=== PATIENT | female | born 1990 | race Caucasian/White ===

== ENCOUNTER 2022-01-04 13:50 | Emergency (ER) | payer OTHER ==
[2022-01-04 15:01] VITALS: TEMP 98.5; BMI 24.7
[2022-01-04] MEDS ORDERED: FAMOTIDINE 20 MG/50 ML IVPB 20 MG/50 ML MG IVPB ONE (15:08)
[2022-01-04] MEDS ORDERED: SODIUM CHLORIDE 0.9% 500 ML INFUS.BAG IV ONE (15:08)
[2022-01-04] MEDS ORDERED: ONDANSETRON 4 MG/2 ML VIAL IVPB ONE (15:08)
[2022-01-04] MEDS ORDERED: ONDANSETRON 4 MG/2 ML VIAL ONE (15:13)
[2022-01-04] MEDS ORDERED: FAMOTIDINE 10 MG/ML VIAL IVPB ONE (15:14)
[2022-01-04 16:32] LABS: BASO % 0.5 % (0-2.0); EOS % 0.8 % (0-4.5); HEMATOCRIT 38.1 % (32.4-45.2); HEMOGLOBIN 13.1 GM/dL (10.7-15.3); LYMPH % 23.3 % (8-40); MCH 30.4 pg (25.7-33.7); MCHC 34.5 g/dl (32.0-36.0); MEAN CELL VOLUME 88.1 fl (80-96); MEAN PLT VOLUME 8.5 fl (7.5-11.1); MONO % 7.9 % (3.8-10.2); NEUT % 67.5 % (42.8-82.8); PLATELET COUNT 367 10^3/uL (134-434); RBC 4.32 M/mm3 (3.60-5.2); RDW 13.6 % (11.6-15.6); WHITE BLOOD COUNT 7.1 K/mm3 (4.0-10.0)
[2022-01-04 16:52] LABS: CALCIUM 9.6 mg/dL (8.5-10.1)
[2022-01-04 16:54] LABS: ALBUMIN 4.4 g/dl (3.4-5.0)
[2022-01-04 16:56] LABS: CREATININE 0.5 mg/dL (0.55-1.3)
[2022-01-04 16:58] LABS: BILIRUBIN,TOTAL 0.5 mg/dL (0.2-1)
[2022-01-04 17:06] LABS: ACTIVATED PTT 34.3 SECONDS (25.2-36.5); INR 1.17 (0.83-1.09); PROTHROMBIN TIME (PATIENT) 13.5 SEC (9.7-13.0)
[2022-01-04 17:09] LABS: BLOOD UREA NITROGEN 8.8 mg/dL (7-18)
[2022-01-04 18:07] LABS: EPI CELLS 31 /uL (0-25.1); HYALINE CASTS 1 /uL (0-3.1); PH,URINE 7.5 (5.0-8.0); URINE APPEARANCE CLEAR; URINE BACTERIA 237 /uL (0-1359); URINE BILIRUBIN NEGATIVE (NEGATIVE); URINE COLOR YELLOW; URINE GLUCOSE (UA) NEGATIVE (NEGATIVE); URINE KETONE 1+ (NEGATIVE); URINE LEUK ESTERASE 1+ (NEGATIVE); URINE NITRITE NEGATIVE (NEGATIVE); URINE PROTEIN NEGATIVE (NEGATIVE); URINE RBC 8 /uL (0-23.9); URINE UROBILINOGEN 0.2 mg/dL (0.2-1.0); URINE WBC 31 /uL (0-25.8)
[2022-01-04] MEDS ORDERED: CEPHALEXIN MONOHYDRATE 500 MG CAPSULE (UD) PO ONE (21:02)
[2022-01-04] MEDS ORDERED: CEPHALEXIN MONOHYDRATE 500 MG CAPSULE (UD) ONE ×2 (21:09→21:10)
[2022-01-04 22:25] VITALS: BP 124/74; PULSE 88
== END 2022-01-04 21:10 | disposition home or self-care (01) ==
LOC: JER 13:50
PROC: 3E033GC Introduction of Other Therapeutic Substance into Peripheral Vein, Percutaneous Approach (ICD-10-PCS; principal; 2022-01-04)
PROC: 3E033GC Introduction of Other Therapeutic Substance into Peripheral Vein, Percutaneous Approach (ICD-10-PCS; 2022-01-04)
DX: R10.84 Generalized abdominal pain (principal)
CPT/HCPCS: 0241U-QW; 36415; 71045-TC-FY; 74177-TC; 76705-TC; 80053; 81003; 83690; 84439; 84443; 84703; 85025; 85610; 85730; 87086; 93005; 93010; 99285-25; Q9967